=== PATIENT | female | born 1945 | race Caucasian/White ===

== ENCOUNTER 2021-03-09 06:59 | Day surgery (SDC) | payer MEDICARE, BC ==
[~2021-03-09 06:59] MED LIST: Sodium Chloride 0.9% 1,000 ML IV SCH
[2021-03-09] MEDS ORDERED: Propofol 200 MG/20 ML SDV ONE (07:16)
[2021-03-09] MEDS ORDERED: fentaNYL 100 MCG/2 ML SDV ONE (07:17)
[2021-03-09 07:50] LABS: CORONAVIRUS COVID-19 NAA NEGATIVE (NEGATIVE)
--- NOTE | 2021-03-09 13:02 | OR ---
DATE OF PROCEDURE: 03/09/2021 SURGEON: Barrett Stiles MD PROCEDURE: Colonoscopy. FINDINGS: 1. Diverticulosis, mild, throughout entire colon but most densely concentrated in a classic pattern in sigmoid colon without evidence of diverticulitis or bleeding. 2. Sigmoid colon polyp of approximately 3 mm, completely removed using cold biopsy forceps. COMPLICATIONS: None. CLOTHES PRESSER: None. PREOPERATIVE DIAGNOSIS: Screening colonoscopy. POSTOPERATIVE DIAGNOSIS: Screening colonoscopy/history of colon polyps. RISKS: Risks, benefits, alternatives, and limitations including, but not limited to infection, bleeding, perforation, false positives, false negatives were explained to the patient and they wished to proceed. PROCEDURE IN DETAIL: The patient was placed in left lateral decubitus position. Digital rectal exam was performed without abnormality. Scope was introduced and advanced atraumatically to the ileocecal valve. The scope was brought back to the ascending, transverse, descending colon, and retroflexed. No evidence of old or new blood. No masses. No other abnormalities. No evidence of colitis. Diverticulosis was described as mild, mostly limited to sigmoid colon without evidence of diverticulitis or bleeding. The polyp was removed without abnormality. No abnormal bleeding noted after polypectomy. No abnormalities on retroflexion. Greater than 8 minutes spent removing the scope. Prep was acceptable, approximately 90% of luminal surface could be seen. The patient tolerated procedure well. Barrett Stiles MD /[id number]
== END 2021-03-09 09:37 | disposition home or self-care (01) ==
LOC: JP.SDS 06:59
PROVIDERS: ATTEND Surgery
DX: Z12.11 Encounter for screening for malignant neoplasm of colon (principal); D12.5 Benign neoplasm of sigmoid colon; K57.30 Diverticulosis of large intestine without perforation or abscess without bleeding; I10 Essential (primary) hypertension; Z01.812 Encounter for preprocedural laboratory examination; Z20.822 Contact with and (suspected) exposure to COVID-19; Z91.040 Latex allergy status
CPT/HCPCS: 0241U; 45380; J2704; J3010; J7030

== ENCOUNTER 2022-02-07 18:46 | Emergency (ER) | payer MEDICARE, BC ==
[2022-02-07] MEDS ORDERED: Sodium Chloride 0.9% 75 ML IV SCH (21:15)
[2022-02-07] MEDS ORDERED: Iopamidol 755 Mg/ML 100 ML Bottle IV SCH (21:15)
== END 2022-02-07 23:03 | disposition home or self-care (01) ==
LOC: JP.ED 18:46
DX: I63.9 Cerebral infarction, unspecified (principal); H53.2 Diplopia; Z88.8 Allergy status to other drugs, medicaments and biological substances; Z91.040 Latex allergy status; Z88.1 Allergy status to other antibiotic agents; Z79.899 Other long term (current) drug therapy; Z79.82 Long term (current) use of aspirin
CPT/HCPCS: 70496; 70498; 99284; J3490; Q9967

== ENCOUNTER 2022-10-07 07:14 | Day surgery (SDC) | payer MEDICARE, BC ==
[2022-10-07] MEDS ORDERED: fentaNYL 100 MCG/2 ML SDV ONE (07:44)
[2022-10-07] MEDS ORDERED: Propofol 200 MG/20 ML SDV ONE ×2 (07:45→09:34)
[2022-10-07] MEDS ORDERED: Dextrose 5%-Lactated Ringers 1,000 ML IV SCH (07:45)
[2022-10-07] MEDS ORDERED: Doxycycline 100 MG Cap PO ONE (10:25)
[2022-10-07] MEDS ORDERED: Ondansetron 4 MG Tab.DIS PO ONE (12:00)
== END 2022-10-07 12:22 | disposition home or self-care (01) ==
LOC: JP.SDS 07:14
PROVIDERS: ATTEND Surgery
DX: K21.00 Gastro-esophageal reflux disease with esophagitis, without bleeding (principal); K44.9 Diaphragmatic hernia without obstruction or gangrene; K29.60 Other gastritis without bleeding; I10 Essential (primary) hypertension; E78.5 Hyperlipidemia, unspecified; Z87.09 Personal history of other diseases of the respiratory system; Z86.010 Personal history of colon polyps; Z91.040 Latex allergy status; Z91.018 Allergy to other foods; Z88.1 Allergy status to other antibiotic agents
CPT/HCPCS: 43239; 45380; 87046; 87081; 87493; 87899; 88305; 89055; A9270; J2704; J3010; J7121; Q0162

== ENCOUNTER 2022-12-19 05:36 | Observation (INO) | payer MEDICARE, BC ==
[2022-12-19 06:21] LABS: A/G RATIO 1.2 (1.2-2.2); ALANINE AMINOTRANSFERASE,ALT 26 U/L (12-78); ALBUMIN 4.1 g/dL (3.4-5.0); ALKALINE PHOSPHATASE 88 U/L (46-116); ANION GAP 8.8 mmol/L (5.0-14.0); ASPARTATE AMNIOTRANSFERASE,AST 26 U/L (15-37); BILIRUBIN TOTAL 0.4 mg/dL (0.2-1.0); BLOOD UREA NITROGEN,BUN 15 mg/dL (7-18); CARBON DIOXIDE,CO2 29 mmol/L (21-32); CHLORIDE,CL 103 mmol/L (100-108); CREATININE 0.7 mg/dL (0.6-1.0); ESTIMATED GFR 90 mL/min (>60); GLUCOSE RANDOM 92 mg/dL (74-106); POTASSIUM,K 4.1 mmol/L (3.6-5.2); PROTEIN TOTAL,TP 7.5 g/dL (6.4-8.2); SODIUM,NA 141 mmol/L (140-148)
[2022-12-19] MEDS: Dextrose 5%-Lactated Ringers 1,000 ML IV SCH ×2 (06:27→23:09)
[2022-12-19] MEDS ORDERED: Indocyanine Green 25 MG SDV IV ONE (06:30)
[2022-12-19] MEDS ORDERED: Lidocaine 1% with EPINEPHrine 1:100,000 50 ML MDV ONE (06:40)
[2022-12-19] MEDS ORDERED: Bupivacaine 0.5% 50 ML MDV ONE (06:40)
[2022-12-19 06:42] LABS: MAGNESIUM 2.1 mg/dL (1.8-2.4); PHOSPHORUS 3.9 mg/dL (2.5-4.9)
[2022-12-19] MEDS ORDERED: fentaNYL 250 MCG/5 ML SDV ONE ×2 (07:13→08:27)
[2022-12-19] MEDS ORDERED: Dexamethasone 4 MG/ML SDV ONE (07:14)
[2022-12-19] MEDS ORDERED: Ondansetron 4 MG/2 ML SDV ONE (07:14)
[2022-12-19] MEDS ORDERED: Glycopyrrolate 0.2 MG/ML 5 ML MDV ONE (07:14)
[2022-12-19] MEDS ORDERED: Rocuronium 50 MG/5 ML Vial ONE (07:14)
[2022-12-19] MEDS ORDERED: Neostigmine Methylsulfate 1 MG/ML 5 ML Syringe ONE (07:14)
[2022-12-19] MEDS ORDERED: Propofol 200 MG/20 ML SDV ONE (07:14)
[2022-12-19] MEDS ORDERED: cefOXitin 2 GM in Sodium Chloride 0.9% 50 ML IV ONE (07:30)
[2022-12-19] MEDS ORDERED: Ketamine 500 MG/5 ML MDV IV SCH (07:30)
[2022-12-19] MEDS ORDERED: Ketamine 13 MG in Sodium Chloride 0.9% 19.87 ML IV SCH (07:30)
[2022-12-19] MEDS ORDERED: Labetalol 20 MG/4 ML Syringe ONE (08:25)
[2022-12-19] MEDS ORDERED: Lactated Ringers 1,000 ML ONE (08:53)
[2022-12-19] MEDS ORDERED: Naloxone 0.4 MG/ML SDV ONE (09:21)
[2022-12-19] MEDS ORDERED: Ondansetron 4 MG Tab.DIS PO ONE (12:40)
[2022-12-19] MEDS ORDERED: Scopolamine 1.5 MG Transdermal Patch TRDERM ONE (13:31)
[2022-12-19] MEDS ORDERED: Ondansetron 4 MG/2 ML SDV IVPUSH PRN (14:22)
[2022-12-19] MEDS ORDERED: Metoclopramide 10 MG/2 ML SDV IVPUSH PRN (14:22)
[2022-12-19] MEDS: Pantoprazole 40 MG Tab.CR PO SCH (17:09)
[2022-12-19] MEDS: busPIRone 5 MG Tab PO SCH (20:36)
[2022-12-19] MEDS: atorvaSTATin 10 MG Tab PO SCH (20:36)
[2022-12-19] MEDS: Acetaminophen 325 MG Tab PO PRN (20:37)
[2022-12-19] MEDS: Melatonin 3 MG Tab PO SCH (20:37)
[2022-12-19] MEDS: Azithromycin 250 MG Tab PO SCH (20:37)
[2022-12-20] MEDS ORDERED: Tamsulosin 0.4 MG Cap.ER PO ONE (03:00)
[2022-12-20 04:27] LABS: HEMATOCRIT 30.2 % (34.3-46.0); HEMOGLOBIN 9.7 g/dL (11.2-15.5); IMMATURE GRAN PERCENT AUTO 0.3 % (0.0-0.7); LYMPHOCYTES ABSOLUTE AUTO 0.86 K/uL (0.8-3.3); LYMPHOCYTES PERCENT AUTO 13.2 % (11.4-47.7); MEAN CORPUSCULAR HGB CONC 32.1 g/dL (31.6-35.5); MEAN CORPUSCULAR VOLUME 90.4 fL (81.4-99.0); MONOCYTES ABSOLUTE AUTO 0.51 K/uL (0.20-0.90); MONOCYTES PERCENT AUTO 7.8 % (3.3-12.6); NEUTROPHILS ABSOLUTE AUTO 5.12 K/uL (1.0-7.6); NEUTROPHILS PERCENT AUTO 78.7 % (40.0-78.1); PLATELET COUNT,PLT 162 K/uL (130-375); RED BLOOD CELL COUNT 3.34 M/uL (3.77-5.24); WHITE BLOOD CELL COUNT,WBC 6.5 K/uL (3.2-11.0)
[2022-12-20 04:53] LABS: A/G RATIO 1.1 (1.2-2.2); ALANINE AMINOTRANSFERASE,ALT 37 U/L (12-78); ALBUMIN 2.9 g/dL (3.4-5.0); ALKALINE PHOSPHATASE 59 U/L (46-116); ANION GAP 3.8 mmol/L (5.0-14.0); ASPARTATE AMNIOTRANSFERASE,AST 33 U/L (15-37); BILIRUBIN TOTAL 0.3 mg/dL (0.2-1.0); BLOOD UREA NITROGEN,BUN 8 mg/dL (7-18); CALCIUM 8.5 mg/dL (8.5-10.1); CARBON DIOXIDE,CO2 30 mmol/L (21-32); CHLORIDE,CL 108 mmol/L (100-108); CREATININE 0.7 mg/dL (0.6-1.0); EST CRCL DRUG DOSING (CG) 49.88 mL/min; ESTIMATED GFR 90 mL/min (>60); GLUCOSE RANDOM 142 mg/dL (74-106); POTASSIUM,K 4.5 mmol/L (3.6-5.2); PROTEIN TOTAL,TP 5.6 g/dL (6.4-8.2); SODIUM,NA 142 mmol/L (140-148)
[2022-12-20 05:04] LABS: IMMATURE GRAN ABSOLUTE AUTO 0.02 K/uL (0.00-0.23)
[2022-12-20] MEDS ORDERED: Tamsulosin 0.4 MG Cap.ER PO SCH (08:00)
[2022-12-20] MEDS: Pantoprazole 40 MG Tab.CR PO SCH (08:29)
[2022-12-20] MEDS: Azithromycin 250 MG Tab PO SCH ×2 (08:29→21:31)
[2022-12-20] MEDS: busPIRone 5 MG Tab PO SCH ×2 (08:29→21:31)
[2022-12-20] MEDS: Dextrose 5%-Lactated Ringers 1,000 ML IV SCH ×2 (10:35→20:48)
[2022-12-20] MEDS: Tamsulosin 0.4 MG Cap.ER PO SCH (17:44)
[2022-12-20] MEDS: Acetaminophen 325 MG Tab PO PRN (20:46)
[2022-12-20] MEDS: atorvaSTATin 10 MG Tab PO SCH (21:31)
[2022-12-20] MEDS: Melatonin 3 MG Tab PO SCH (21:31)
[2022-12-21] MEDS: Dextrose 5%-Lactated Ringers 1,000 ML IV SCH (05:39)
[2022-12-21] MEDS: busPIRone 5 MG Tab PO SCH ×2 (07:21→08:43)
[2022-12-21] MEDS: Pantoprazole 40 MG Tab.CR PO SCH (07:21)
[2022-12-21] MEDS: Tamsulosin 0.4 MG Cap.ER PO SCH (07:21)
[2022-12-21] MEDS: Azithromycin 250 MG Tab PO SCH ×2 (07:22→08:43)
== END 2022-12-21 10:59 | disposition home or self-care (01) ==
LOC: JP.SDS 05:36 → JP.MS 14:00
PROVIDERS: ADMIT Surgery; ATTEND Surgery
DX: K81.1 Chronic cholecystitis (principal); K82.8 Other specified diseases of gallbladder; I10 Essential (primary) hypertension; F41.9 Anxiety disorder, unspecified; R11.0 Nausea; R33.9 Retention of urine, unspecified; K21.9 Gastro-esophageal reflux disease without esophagitis; G43.909 Migraine, unspecified, not intractable, without status migrainosus; E20.9 Hypoparathyroidism, unspecified; I71.20 Thoracic aortic aneurysm, without rupture, unspecified; Z95.4 Presence of other heart-valve replacement; Z86.010 Personal history of colon polyps; Z86.79 Personal history of other diseases of the circulatory system; Z79.899 Other long term (current) drug therapy; Z91.040 Latex allergy status; Z88.1 Allergy status to other antibiotic agents; Z88.5 Allergy status to narcotic agent
CPT/HCPCS: 36415; 47562; 51702; 51798; 80053; 83735; 84100; 85025; 88304; 93005; A9270; J0131; J0171; J0694; J1100; J2310; J2405; J2704; J2710; J2795; J3010; J3490; J7120; J7121; Q0162